=== PATIENT | female | born 1960 | race Hispanic/Latino ===

== ENCOUNTER 2018-10-05 19:55 | Emergency (ER) | payer MEDICAID ==
[2018-10-05 19:55] VITALS: PULSE 82
--- NOTE | 2018-10-05 20:21 | C.PDOC ---
History Of Present Illness Patient presents to the ER with a complaint of SOB, cough, back pain, and other multiple complaints, however, patient is morbidly obese. She is currently speaking in complete sentences. Denies fever, chills, nausea, or vomiting. Time Seen by Provider: 10/05/18 20:21 Chief Complaint (Nursing): Respiratory Distress History Per: Patient History/Exam Limitations: no limitations Onset/Duration Of Symptoms: Hrs Current Symptoms Are (Timing): Still Present Severity: Moderate Pain Scale Rating Of: 4 Recent travel outside of the [place]: No Past Medical History Reviewed: Historical Data, Nursing Documentation, Vital Signs Vital Signs: Last Vital Signs Temp 98.5 F 10/05/18 19:58 Pulse 111 H 10/05/18 19:58 Resp 32 H 10/05/18 19:58 BP 138/81 10/05/18 19:58 Pulse Ox 96 10/05/18 19:58 - Medical History PMH: Anxiety, Asthma, Atrial Fibrillation, Cardia Arrhythmia, CHF, HTN, Hypercholesterolemia, Hyperlipidemia, Peripheral Edema Denies: HIV, Chronic Kidney Disease Surgical History: Cholecystectomy, (x1) - [facility] Procedures INTRODUCTION OF SERUM/TOX/VACCINE INTO MUSCLE, PERC APPROACH (05/19/16) Family History: States: No Known Family Hx - Social History Hx Alcohol Use: No Hx Substance Use: No - Immunization History Hx Tetanus Toxoid Vaccination: (unknown) Hx Influenza Vaccination: (unknown) Hx Pneumococcal Vaccination: (unknown) Review Of Systems Constitutional: Negative for: Fever, Chills Cardiovascular: Negative for: Chest Pain, Palpitations Respiratory: Positive for: Cough, Shortness of Breath Gastrointestinal: Negative for: Nausea, Vomiting Musculoskeletal: Positive for: Back Pain Neurological: Negative for: Weakness, Numbness Physical Exam - Physical Exam Appears: Non-toxic Skin: Warm, Dry Head: Normacephalic Oral Mucosa: Moist Neck: Trachea Midline, Supple Chest: Symmetrical, No Tenderness Cardiovascular: Rhythm Regular Respiratory: No Rales, Rhonchi (Diffuse scattered), No Wheezing Gastrointestinal/Abdominal: Soft, No Tenderness, Other (Morbidly obese) Extremity: Pedal Edema (Trace), Capillary Refill (Good), Other (Beginning of some venous stasis skin changes) Pulses: Left Dorsalis Pedis: Normal, Right Dorsalis Pedis: Normal Neurological/Psych: Oriented x3 ED Course And Treatment - Laboratory Results Result Diagrams: 10/05/18 20:46 10/05/18 20:46 ECG: Interpreted By Me, Viewed By Me ECG Rhythm: Sinus Rhythm (107), Nonspecific Changes (occ pvc's) O2 Sat by Pulse Oximetry: 96 (Room air) Pulse Ox Interpretation: Normal Progress Note: Blood work, EKG, urinalysis, and flu swab ordered. Duoneb nebulizer administered. pt sleeping. saturation 96-98% on RA. Reevaluation Time: 05:00 Reassessment Condition: Improved Disposition Counseled Patient/Family Regarding: Studies Performed, Diagnosis, Need For Followup - Disposition Referrals: Mike Cotton MD [IM] - Disposition: HOME/ ROUTINE Disposition Time: 20:21 Condition: FAIR Additional Instructions: Por favor regrese si los sntomas recurren. Prescriptions: Albuterol HFA [Ventolin HFA 90 mcg/actuation (8 g)] 2 puff IH [id number] #1 puff Azithromycin [Zithromax Tri-Alex] 500 mg PO DAILY #3 tab Instructions: Acute Bronchitis, Adult (DC) Forms: Figure 1 (Latvian) Print Language: CUBAN - Clinical Impression Clinical Impression: Upper respiratory infection - Scribe Statement The provider has reviewed the documentation as recorded by the Scribe Ever Charles All medical record entries made by the Scribe were at my direction and personally dictated by me. I have reviewed the chart and agree that the record accurately reflects my personal performance of the history, physical exam, medical decision making, and the department course for this patient. I have also personally directed, reviewed, and agree with the discharge instructions and disposition.
[2018-10-05] MEDS ORDERED: Albuterol-Ipratrop 3 mg / 0.5 (3 ml) UD ONE ×2 (20:23→20:53)
[2018-10-05] MEDS: Albuterol-Ipratrop 3 mg / 0.5 (3 ml) UD IH SCH ×3 (20:30→21:10)
[2018-10-05 20:51] LABS: BASO # 0.1 K/uL (0.0-0.2); BASO % 0.5 % (0.0-2.0); EOS # 0.2 K/uL (0.0-0.7); EOS % 1.3 % (0.0-4.0); HEMOGLOBIN 10.4 g/dL (11.0-16.0); LYMPH % 7.2 % (20.0-40.0); MEAN CELL VOLUME 70.6 fL (81.0-99.0); MEAN CORPUSCULAR HEMOGLOBIN 21.4 pg (27.0-31.0); MEAN CORPUSCULAR HGB CONC 30.3 g/dL (33.0-37.0); MEAN PLATELET VOLUME 8.5 fL (7.2-11.7); NEUT # 11.8 K/uL (1.8-7.0); PLATELET COUNT 310 K/uL (130-400); RBC 4.84 Mil/uL (3.80-5.20); RED CELL DISTRIBUTION WIDTH 17.8 % (11.5-14.5)
[2018-10-05 21:02] LABS: INR 1.2; PROTHROMBIN TIME 12.6 SECONDS (9.7-12.2)
[2018-10-05 21:06] LABS: ABG ALLEN TEST POS; ARTERIAL BLOOD GAS HCO3 27.9 mmol/L (21-28); ARTERIAL BLOOD GAS O2 SAT 98.1 % (95-98); ARTERIAL BLOOD GAS PCO2 46 mm/Hg (35-45); ARTERIAL BLOOD GAS PH 7.41 (7.35-7.45); ARTERIAL BLOOD GAS PO2 119 mm/Hg (80-100); ARTERIAL BLOOD GAS TCO2 30.6 mmol/L (22-28)
[2018-10-05 21:11] LABS: ALB/GLOB RATIO 1.1 (1.0-2.1); ALBUMIN 3.9 g/dL (3.5-5.0); ALT/SGPT 24 U/L (9-52); AST/SGOT 29 U/L (14-36); BLOOD UREA NITROGEN 18 mg/dL (7-17); CALCIUM 8.7 mg/dl (8.6-10.4); GFR NON-AFRICAN AMERICAN > 60
[2018-10-05 21:36] LABS: ANISOCYTOSIS SLIGHT; BANDS 1 % (0-2); EOSINOPHIL 2 % (0-4); HYPOCHROMIC SLIGHT; LYMPHOCYTE 7 % (20-40); MONOCYTE 6 % (0-10); NEUTROPHIL 84 % (50-75); PLATELET ESTIMATE NORMAL (NORMAL); POIKILOCYTOSIS SLIGHT; TOTAL CELLS COUNTED 100
[2018-10-05 21:37] LABS: MICROCYTOSIS SLIGHT; OVALOCYTES SLIGHT; TARGET CELLS SLIGHT; TEARDROP CELLS SLIGHT
[2018-10-05] MEDS ORDERED: Piperacillin/Tazobact 3.375 gm 100 ML IVPB STA (23:56)
[2018-10-06] MEDS ORDERED: Piperacillin/Tazobact 3.375 gm 100 ML IVPB ONE (00:08)
[2018-10-06 05:31] VITALS: BP 139/81; PULSE 93; RESP 18; TEMP 97.9; O2SAT 95
--- NOTE | 2018-10-06 11:13 | CT ---
Date of service: 10/05/2018 CT chest without IV contrast Indication: cough, sob Technique: Contiguous axial images were obtained through the chest without intravenous contrast enhancement. Sagittal and coronal reconstructions were generated and reviewed. This CT exam was performed using 1 or more of the following dose reduction techniques: Automated exposure control, adjustment of the MAA and/or kV according to patient size, and/or use of iterative reconstruction technique. Radiation dose (DLP): 925.29 MGy-cm. Comparison: None available Findings: Examination limited by habitus and slight respiratory motion. Visualized portions of the inferior thyroid gland demonstrates 4 mm calcification right lower pole. The unenhanced mediastinal and hilar vascular structures appear grossly unremarkable. Cardiomegaly. Dense atherosclerotic calcifications of the aorta. Coronary artery calcifications. No focal consolidation. No pleural effusion. No pneumothorax. 6 mm left lower lobe calcified granuloma. 4 mm left lower lobe calcified granuloma. Limited visualization of the noncontrast upper abdomen: Partially imaged inflammatory stranding in the mesentery as well as sub cm mesenteric lymph nodes. 2.1 x 2.8 cm rounded mass in the left upper quadrant; is unclear if this arises from the adrenal gland. This mass measures approximately 4 HU. Degenerative changes. Impression: Mild pulmonary venous congestion. Cardiomegaly. Correlate clinically for CHF. Calcified granulomas at the left lung base consistent with prior granulomatous infection. 4 mm calcification included right lower pole thyroid gland. Partially imaged inflammatory stranding in the mesentery as well as sub cm mesenteric lymph nodes. Correlate clinically for possibility of mesenteric adenitis/panniculitis. 2.1 x 2.8 cm rounded mass in the left upper quadrant as described above; unclear if this arises from the adrenal gland. In fact this mass arises from the left adrenal gland, adenoma is suspected. Preliminary impression was provided by [facility]. Study marked for PA review.
--- NOTE | 2018-10-06 12:16 | CARD ---
APPROVED REPORT Date of service: 10/05/2018 EKG Measurement Heart [id number] <Conclusion> Sinus tachycardia with occasional premature ventricular complexes Otherwise normal ECG
== END 2018-10-06 06:14 | disposition home or self-care (01) ==
LOC: C.ER 19:55
DX: J06.9 Acute upper respiratory infection, unspecified (principal); Z87.891 Personal history of nicotine dependence; I11.0 Hypertensive heart disease with heart failure; I48.91 Unspecified atrial fibrillation; I50.9 Heart failure, unspecified; J45.909 Unspecified asthma, uncomplicated; E78.00 Pure hypercholesterolemia, unspecified; E66.01 Morbid (severe) obesity due to excess calories
CPT/HCPCS: 36600; 71250; 80053; 82803; 83735; 83880; 84484; 85025; 85610; 85730; 87040; 87804; 93005; 96365; 99285; J2543